=== PATIENT | male | born 1990 | race Caucasian/White ===

== ENCOUNTER 2017-02-28 16:49 | Emergency (ER) | payer SELFPAY ==
[~2017-02-28 16:49] MED LIST: CEPH500C3 PO; Z.0.NO CURRENT MEDS
[2017-02-28 16:50] VITALS: BP 133/80; PULSE 100; RESP 20; TEMP 98.7; O2SAT 98
--- NOTE | 2017-02-28 17:15 | PD ---
Physical Exam Time Seen by Provider: 17:10 Narrative 26yo M right ear pain x 1 weeks with sharp pain 3 days ago. Reports nasal congestion, sore throat. Reports decreased hearing to R ear. Denies fever, vomiting. VSS. Patient seen in triage. Awaiting bed placement. Data Data Last Documented VS Vital Signs Date Time Temp Pulse Resp B/P Pulse Ox O2 Delivery O2 Flow Rate FiO2 02/28/17 16:50 98.7 100 20 133/80 98 Room Air [facility] Supervised Visit with QUEENIE: Claudia Mendes Feb 28, 2017 17:15
--- NOTE | 2017-02-28 17:31 | PD ---
HPI . c/o right ear pain for 1 week and difficulty hearing Chief Complaint: ENT Complaint Time Seen by Provider: 17:30 Travel History International Travel<30 days: No Contact w/Intl Traveler<30days: No Traveled to known affect area: No History of Present Illness HPI 26-year-old male here with complaints of right ear pain and difficult to hear for 1 week. Patient says he's been trying to clean his ear himself because he knows that he has a good amount of wax buildup, but has been unable to do so successfully. He is now complaining of pain in the right ear canal. He tells me that the left ear is okay and he has no difficulty hearing out of that ear. PFSH Past Medical History Medical History: Denies Significant Hx Diminished Hearing: Yes Tetanus Vaccination: < 5 Years Influenza Vaccination: No Past Surgical History Surgical History: No Previous Surgery Social History Alcohol Use: Yes Tobacco Use: Yes Substance Use: No Allergies-Medications (Allergen,Severity, Reaction): Coded Allergies: Robitussin (Verified Allergy, Severe, SPEAKING PROBLEMS, 02/28/17) Reported Meds & Prescriptions Reported Meds & Active Scripts Active No Active Prescriptions or Reported Medications Review of Systems General / Constitutional: No: Fever Eyes: No: Visual changes HENT: Positive: Other (hearing difficulty/pain), No: Headaches Cardiovascular: No: Chest Pain or Discomfort Respiratory: No: Shortness of Breath Gastrointestinal: No: Abdominal Pain Genitourinary: No: Dysuria Musculoskeletal: No: Pain Skin: No Rash Neurologic: No: Weakness Psychiatric: No: Depression Endocrine: No: Polydipsia Hematologic/Lymphatic: No: Easy Bruising Physical Exam Narrative GENERAL: AAO x 3, no acute distress, Well-nourished, well-developed patient. SKIN: Warm and dry. No visible rashes or bruising. HEAD: Normocephalic and atraumatic. EYES: No scleral icterus. No injection or drainage. ENT: No nasal drainage noted. Mucous membranes pink. Airway patent. Right ear full with cerumen that is impacted and hard, left TM is visible, there is a small amount of wax present NECK: Supple, trachea midline. No JVD. CARDIOVASCULAR: Regular rate and rhythm without murmurs, gallops, or rubs. RESPIRATORY: Breath sounds equal bilaterally. No accessory muscle use. No rhonchi or rales. GASTROINTESTINAL: visual inspection, normal EXTREMITIES: No cyanosis or edema. BACK: Nontender without obvious deformity. No CVA tenderness. PSYCH: AAO x 3, normal affect. Data Data Last Documented VS Vital Signs Date Time Temp Pulse Resp B/P Pulse Ox O2 Delivery O2 Flow Rate FiO2 02/28/17 16:50 98.7 100 20 133/80 98 Room Air MDM Medical Decision Making Medical Screen Exam Complete: Yes Emergency Medical Condition: No Medical Record Reviewed: Yes Differential Diagnosis cerumen impaction, less likely OM, less likely OE Narrative Course 26-year-old male here with complaints of right ear pain and difficult to hear for 1 week. Patient says he's been trying to clean his ear himself because he knows that he has a good amount of wax buildup, but has been unable to do so successfully. He is now complaining of pain in the right ear canal. He tells me that the left ear is okay and he has no difficulty hearing out of that ear. I've explained to patient that he would benefit from using [id number] Debrox to try to help loosen his cerumen impaction. Explained that he may need to see ear nose and throat for further removal of this wax. He can also [facility] to f[facility] if they can assist him. A medical screening exam was performed: At the time of evaluation the presenting medical condition was determined not to be of an emergent nature. The patient was given the option of receiving additional care, but declined. Patient was given options for additional community resources from which to obtain care. The Patient Has Been advised to seek medical attention for their presenting complaint. The patient has been advised to return to the ER at any time if an emergent condition develops. Diagnosis Primary Impression: Encounter for medical screening examination Scripts No Active Prescriptions or Reported Meds Condition: Stable Megan Qureshi Feb 28, 2017 17:30
== END 2017-02-28 17:46 | disposition left against medical advice (07) ==
LOC: NEPK 16:49
DX: H92.01 Otalgia, right ear (principal)
CPT/HCPCS: 99281